=== PATIENT | female | born 1975 | race Caucasian/White ===

== ENCOUNTER 2017-01-13 06:14 | Emergency (ER) | payer OTHER ==
[~2017-01-13] VITALS: Ht 165.1 cm; Wt 150.0 kg
[2017-01-13 06:20] VITALS: BP 146/78; PULSE 92; RESP 20; O2SAT 99
--- NOTE | 2017-01-13 06:34 | ED.REPORT ---
HPI-Abd Pain F Under 42 Date of Service Jan 13, 2017 ED Provider: The patient is a 41 year old female with history of bowel obstructions and known incisional hernia requiring multiple repairs, who presents to the emergency department complaining of lower abdominal pain that began suddenly last night around midnight. She has also experienced nausea and vomiting. Her pain does not radiate. She is still able to pass gas and had a small bowel movement this morning. She denies fever or chills. Her last surgery was about 2- 3 years ago. She normally takes morphine 10 mg BID and 1-3 Vicodin tabs daily for pain. Nursing Notes Stated Complaint: ABDOMINAL PAIN/NAUSEA Chief Complaint: Female Abdominal Pain Nursing Notes Reviewed: Yes ([employer] not reconciled) Allergies: Coded Allergies: clindamycin (Verified Allergy, Intermediate, Hives, 01/13/17) ibuprofen (Verified Allergy, Intermediate, Hives, 01/13/17) Penicillins (Verified Allergy, Mild, Hives, 01/13/17) cephalexin (Verified Allergy, Unknown, 01/13/17) Scheduled Buspirone (Buspirone) 5 Mg Tablet 5 MG PO BID Escitalopram Oxalate (Escitalopram Oxalate) 5 Mg/5 Ml Solution 20 MG PO DAILY Morphine Sulfate ER (MS Contin) 15 Mg Tablet.er 15 MG PO BID Scheduled PRN Cyclobenzaprine (Cyclobenzaprine) 5 Mg Tablet 5 MG PO TID PRN PRN Spasm Hydrocodone-Acetaminophen 5-325 mg (Hydrocodone-Acetaminophen 5-325 mg) 1 Each Tablet 1 TABLET PO Q4H PRN PRN For Pain General Time Seen by MD: 06:33 Chief Complaint Abdominal pain Hx Obtained From: Patient Arrived By: Walk-in Sudden in Onset?: Yes Onset Occurred: 5 - 8 hours ago Symptom Duration: Since onset Progression since Onset: Constant, Gradually worsening Location: : Diffuse Quality: Painful Severity: Current: Moderate Severity: Maximum: Severe Recent Healthcare: No recent doctor visit, No recent hospitalization Similar Sx Previous: Yes Past Medical History Past Medical History Hernia Bowel obstructions Obesity (BMI 55) Past Surgical History Multiple hernia repairs pannulectomy Reports: Family History Noncontributory Smoking History Never Smoker Social History Alcohol Use: Denies alcohol use Other Social History: Good social support, Local resident Ambulatory Status Independent Review of Systems Constitutional: Denies: Chills, Fever GI: Reports: Abdominal pain, Nausea, Vomiting Complete sys rev & neg: except as marked. Physical Exam Initial Vital Signs Vital Signs (First) Date Time Temp Pulse Resp B/P Pulse Ox O2 Delivery O2 Flow Rate FiO2 01/13/17 06:20 36.5 92 20 146/78 99 Room Air 01/13/17 13:24 3 Initial VS: Reviewed, Vital signs normal Head / Eyes: Atraumatic, Normocephalic, PERRL ENT: Mucous membranes moist, Conjunctiva normal, No scleral icterus Neck: Supple, Non-tender, Full range of motion Lymphatic: No lymphadenopathy Extremities: Vascular intact, Neuro intact, No swelling, No tenderness Neurologic: Alert, Oriented, Nonfocal Psychiatric: Mood/affect normal, Behavior normal, Normal thought content General/Constitutional: Awake Appearance / Presentation: Positive: Obese, morbidly She is sitting upright, diaphoretic, and in pain and discomfort. Respiratory / Chest: Atraumatic, Breath sounds NL, Breath sounds = bilat, No respiratory distress, No rales, No rhonchi, No wheezing Cardiovascular: Heart rate NL, Regular rhythm, Heart sounds NL, No gallop, No murmurs, No rubs, Peripheral circulation NL ABDOMEN: There is an area of firmness along the entire lower abdomen. I cannot tell if there is a hernia there, it is difficulty to tell. The firm area is kind of in the LLQ, not inguinal and is above the region where a would be. It is not tender as most hernias are and I can't tell if that firmness is new and related to the pain and represent an incarcerated hernia or not. Back: Inspection NL, Non-tender, No CVA tenderness Skin: Color NL Color / Condition: Positive: Diaphoresis present Interpretation & Diagnostics Interpretation & Diagnostics: Urine : negative Urine dip: positive for proteins and ketones Lab Results Interpretation Result Diagram: 01/13/17 0630 01/13/17 0630 Test 01/13/17 06:30 01/13/17 09:15 White Blood Count 13.9th/mm3 (3.8-10.1) Red Blood Count 5.08mil/mm3 (3.90-5.20) Hemoglobin 13.1g/dL (12.0-15.6) Hematocrit 41.4% (35.0-46.0) Mean Corpuscular Volume 81.5fL (81-100) Mean Corpuscular Hemoglobin 25.8pg (27.0-35.0) Mean Corpuscular Hemoglobin Concent 31.6% (32.0-37.0) Red Cell Distribution Width 15.6% (12.3-15.4) Platelet Count 331bil/L (150-400) Neutrophils (%) (Auto) 77.8% (40-74) Lymphocytes (%) (Auto) 14.9% (14-46) Monocytes (%) (Auto) 4.6% (4-12) Eosinophils (%) (Auto) 0.9% (0-5) Basophils (%) (Auto) 0.4% (0-3) Sodium Level 135mEq/L (134-144) Potassium Level 4.5mEq/L (3.5-5.2) Chloride Level 97mEq/L (97-108) Carbon Dioxide Level 19mmol/L (18-29) Blood Urea Nitrogen 19mg/dL (6-20) Creatinine 0.61mg/dL (0.57-1.00) Estimat Glomerular Filtration Rate 156mL/min (>59) Glucose Level 210mg/dL (60-99) Lactic Acid Level 1.3mmol/L (0.4-2.0) Calcium Level 9.0mg/dL (8.5-10.1) Magnesium Level 2.0mg/dL (1.6-2.6) Total Bilirubin 0.7mg/dL (0.0-1.2) Aspartate Amino Transf (AST/SGOT) 25U/L (0-50) Alanine Aminotransferase (ALT/SGPT) 24U/L (0-32) Alkaline Phosphatase 82U/L (25-150) Total Protein 7.8g/dL (6.4-8.4) Albumin 4.2g/dL (3.4-5.0) Lipase 17U/L (13-60) Human Chorionic Gonadotropin, Qual <0.500 (Negative) Urine Color Yellow (YELLOW) Urine Appearance Hazy (CLEAR,HAZY) Urine pH 6.0 (5.0-8.0) Urine Specific [place] 1.015 (1.003-1.035) Urine Protein Negativemg/dL (NEG,TRACE) Urine Glucose (UA) Negativemg/dL (NEGATIVE) Urine Ketones 80mg/dL (NEGATIVE) Urine Occult Blood Negative (NEGATIVE) Urine Nitrite Negative (NEGATIVE) Urine Bilirubin Negative (NEGATIVE) Urine Urobilinogen Normalmg/dL (NORMAL) Urine Leukocyte Esterase Negative (NEGATIVE) Urine RBC 0-2/hpf (0-2) Urine WBC 0-5/hpf (0-5) Urine Epithelial Cells Occasional/hpf (NONE-MOD) Urine Crystals None seen (NONE SEEN) Urine Bacteria Moderate/hpf (NONE-FEW) Urine Hyaline Casts None/lpf (NONE) Urine Granular Casts None seen (NONE SEEN) Urine Waxy Casts None seen (NONE SEEN) Urine Red Blood Cell Casts None seen (NONE SEEN) Urine White Blood Cell Casts None seen (NONE SEEN) Urine Mucus None seen (None Seen) Urine Trichomonas None seen (NONE SEEN) Urine Yeast None (NONE SEEN) Urinalysis Comment None Urine Culture Reflexed Indicated Lab Results Interpretation: CBC positive leukocytosis CMP positive hyperglycemia Lipase negative negative CT Abd / Pelvis Interpretation IMPRESSION: 1. Moderate small bowel obstruction, with transition point at the new left anterior pelvic wall small bowel containing hernia. 2. New 50 mm diameter bilateral adnexal cysts. Followup ultrasound examination in 6 weeks is recommended to ensure resolution, and to exclude underlying malignancy. 3. Normal appendix. 4. New, pathologically enlarged bilateral inguinal lymph nodes; findings may be reactive. Followup imaging in 2-3 months is recommended to ensure resolution. 5. Hepatic steatosis. Dictated by: Kaykay Durbin M.D. on 01/13/2017 at 8:18 Interpretation / Wet Read by: Interpret - Radiologist Procedures NG Tube Insertion Inserted bupivacaine with epi and Afrin into both nares. Time: 09:53 Procedure Performed by: ED physician Site of Insertion: Nare right # of Attempts: Attempted once on the right side and was unable to easily pass. Attempted on the left side and this was successful. Size of Oral/NG Tube: 16 Fr Placement/Verification/Secured: Inserted w/o difficulty, Placement by gastric asp, Secured with tape, Verified by auscultation Post-Procedure / Complications: Suction: continuous low, No complications, Tolerated procedure well, Patient stable Re-Eval/Medical Decision Med Decision/Clinical Course This is a 41-year-old morbidly obese female BMI of 55 presents to the emergency department complaining of abdominal pain nausea vomiting that started last evening. Multiple lower abdominal hernias-the exact type of hernias a bit unclear to me. She has had to have a mesh surgery, then had complications of infection, and this had recurrent problems with hernia, and then had a pannulectomy. These procedures have been done Tuesday of hospitals-, [facility], and most recently [facility] for the pannulectomy. The patient arrives diaphoretic, in pain, and is obese which complicates her abdominal exam. There is a fullness as if there may be a mass or even potentially incarcerated hernia in the left lower quadrant-but is not as tender as I would expect for someone with an incarcerated hernia. However the patient' s symptoms are concerning. Workup was pursued. Blood was notable for leukocytosis, CT scan is positive for a hernia with bowel obstruction. At this point surgery was consulted, came and saw the patient-the surgeon and anesthesia both evaluated the patient but they have determined the patient's BMI is too elevated for safe management here at [facility], and recommended transfer. I placed an nasogastric tube for decompression. The patient requests to go to [facility] to previous surgeon Dr. Schuler, so the contract admin provider Dr. Su is being contacted to discuss the case. Source of Hx: Old records Re-Evaluation/Progress #1: Time of Eval: 09:30 Re-Evaluation/Progress Note: Rechecked the patient. Discussed results, diagnosis, and plan for admission. All questions were addressed. Re-Evaluation/Progress #2: Time of Eval: 09:38 Re-Evaluation/Progress Note: Surgeon is at bedside examining the patient. Re-Evaluation/Progress #3: Time of Eval: 09:49 Re-Evaluation/Progress Note: Discussed plan for NG tube. Re-Evaluation/Progress #4: Time of Eval: 10:00 Re-Evaluation/Progress Note: Discussed need for transfer. The patient is requesting transfer to [place]. Re-Evaluation/Progress #5: Time of Eval: 11:06 Re-Evaluation/Progress Note: Rechecked the patient. Discussed plan to transfer to [place]. She understands and agrees with plan. Re-Evaluation/Progress #6: Time of Eval: 13:48 Re-Evaluation/Progress Note: Rechecked the patient. Discussed plan for transfer to . Re-Evaluation/Progress #7: Time of Eval: 16:02 Re-Evaluation/Progress Note: Resting. does not appear in discomfort. Aware we are awaiting bed at [facility] Consultation #1: Referral / Consult Name: Rhys Esparza MD Consulted With: Surgeon Call Returned at: 09:24 Fruit Rancher: Will see patient, Agrees with eval, Agrees with plan Note: He would like the patient to be transferred to a different hospital for surgery due to her BMI. Consultation #2: Consulted With: Surgeon Call Returned at: 11:05 Note: Spoke with Dr. Su, the on-call surgeon from [facility] per the patient's request. They are unable to manage the patient's care and recommend transferring south. Consultation #3: Requested Call at: 11:10 Call Returned at: 11:54 Note: Paged surgeon at [place]. Called back at 1154. There are no beds. Consultation #4: Call Returned at: 12:22 Note: Spoke to the transfer center. They are boarding 40 people and are unsure if they will be able to take her. They will call back. Consultation #5: Referral / Consult Name: Rhys Esparza MD Consulted With: Surgeon Call Returned at: 12:26 Note: Spoke with Dr. Esparza. He recommends administering antibiotics while we wait for the transfer center. Consultation #6: Call Returned at: 13:42 Note: Spoke with Dr. Hubbard from about the patient's case. They will acept the patient for transfer. Will call back with a bed assignment. Consultation #7: Call Returned at: 15:55 Note: Awaiting bed at [facility] Discussed /transfer center, they are working on bed but are hopeful at placement and continue to recommend waiting for bed availability Differential Diagnosis: Positive: Acute abdominal pain, Bowel obstruction, Hernia, Negative: Ectopic preg ruptured, Ectopic , Esophageal rupture, Gun shot wound abdomen, Myocardial infarction, Stab wound abdomen Counseled Regarding: Diagnosis, Lab results, Need for transfer Discharge & Departure Primary Impression: Small bowel obstruction Additional Impressions: Hernia Morbid obesity with BMI of 50.0-59.9, adult Disposition: Transfer, Acute Care Facility Receiving Hospital: Transfer Accepted: Yes Transfer Accepted at: 13:43 Transfer Reason: Higher level of care Spoke with: Attending physician (Dr. Hubbard) Patient Status: Stable, Stable for transfer Patient Informed: Yes Discharge Condition All VS Reviewed: Yes Condition: Stable Referrals: Ed Kerr MD (PCP) Tacos Attestation Portions of this note were transcribed by Kathleen Gifford. I, Dr. Vegas personally performed the history, physical exam and medical decision-making; I reviewed and confirmed the accuracy of the information in the transcribed note. Signed by: Tacos Johnson, 01/13/2017 at 1500. copies to: Ed Kerr MD, Matthew F MD Jan 13, 2017 06:34 Kathleen Gifford Jan 13, 2017 06:41
[2017-01-13] MEDS ORDERED: 0.9% Sodium Chloride 1,000 ML IV ONE ×2 (06:41→12:30)
[2017-01-13] MEDS ORDERED: Promethazine Inj 25 MG in Dextrose 5%-Pha MIX 50 ML IV ONE (06:45)
[2017-01-13] MEDS ORDERED: Ondansetron 2 mg/mL 2 mL Inj IVPUSH ONE ×3 (06:45→16:10)
[2017-01-13 07:00] LABS: BASOPHILS % (AUTO) 0.4 % (0-3); EOSINOPHILS % (AUTO) 0.9 % (0-5); MONOCYTES % (AUTO) 4.6 % (4-12); Mean Corpuscular Hemoglobin 25.8 pg (27.0-35.0); Mean Corpuscular Volume 81.5 fL (81-100); NEUTROPHILS % (AUTO) 77.8 % (40-74); Platelet Count 331 bil/L (150-400)
[2017-01-13 07:37] LABS: Lipase 17 U/L (13-60)
--- NOTE | 2017-01-13 08:31 | DRSVH ---
PROCEDURE: CT ABDOMEN AND PELVIS WITH CONTRAST ([id number]) INDICATIONS: Abd paoin TECHNIQUE: After the administration of intravenous contrast, 5 mm thick sections acquired from the diaphragm to the symphysis. 5 mm coronal and sagittal reformats were acquired. For radiation dose reduction, the following was used: automated exposure control, adjustment of mA and/or kV according to patient siz e. COMPARISON: [facility], [place], PELVIC COMPLETE, 10/20/2016, 7:24. [facility], CT, ABDOMEN/PE LVIS WITHOUT CONTRAST, 09/08/2011, 13:48. [facility] , CT, ABD/PELVIS W/O CON (PNL), 11/12/2010, 11:30. [facility] , CT, ABD/PELVIS W/CON (PNL), 04/22/2009, 11:23. FINDINGS: Image quality: Excellent. ABDOMEN: Lung bases: Lung bases are clear. Heart size is normal. Solid organs: Liver is enlarged, measuring 25.6 cm craniocaudal, and demonstrates diffusely decrease d density, indicating fatty infiltration. Spleen is within normal limits. Gallbladder is within braydon l limits. Biliary system is non dilated. Pancreas enhances normally. No adrenal nodules. Kidneys demonstrate normal size and enhancement, without hydronephrosis. Peritoneum and bowel: The stomach is decompressed. Duodenum and proximal jejunum are normal in calibe r. There are several moderately distended mid small bowel loops within the left hemipelvis and left h emiabdomen, with a transition point between dilated and nondilated small bowel at the site of the lef t anterior pelvic wall hernia. The appendix is normal. The colon is decompressed. No free fluid or ai r. Nodes and vessels: No retroperitoneal or mesenteric adenopathy by size criteria. Aorta and inferior vena cava are normal in size. Miscellaneous: There is a small bowel containing left anterolateral pelvic wall hernia measuring 62 m m, which represents the site of small bowel obstruction. PELVIS: Genitourinary: Bladder wall thickness is normal. An intrauterine device is present. Bilateral ovari an cysts are present, measuring 50 mm bilaterally, new since the prior examination. Miscellaneous: No inguinal hernias. There is new, 15 mm short axis right, and 16 mm short axis left inguinal adenopathy. Subcutaneous scarring within the anterior pelvis is present, compatible with pos tsurgical sequelae. Bones: No suspicious bony lesions. No vertebral body compression fractures. IMPRESSION: 1. Moderate small bowel obstruction, with transition point at the new left anterior pelvic wall small bowel containing hernia. 2. New 50 mm diameter bilateral adnexal cysts. Followup ultrasound examination in 6 weeks is recommen ded to ensure resolution, and to exclude underlying malignancy. 3. Normal appendix. 4. New, pathologically enlarged bilateral inguinal lymph nodes; findings may be reactive. Followup im aging in 2-3 months is recommended to ensure resolution. 5. Hepatic steatosis. Dictated by: Kaykay Durbin M.D. on 01/13/2017 at 8:18 Approved by: Kaykay Durbin M.D. on 01/13/2017 at 8:30
[2017-01-13 09:28] VITALS: BP 134/75; PULSE 89; RESP 14; O2SAT 96
[2017-01-13 10:04] LABS: APPEARANCE,URINE HAZY (CLEAR,HAZY); COLOR,URINE YELLOW (YELLOW); OCCULT BLOOD,URINE NEGATIVE (NEGATIVE); UROBILINOGEN,URINE NORMAL (NORMAL)
--- NOTE | 2017-01-13 10:08 | PCM.HPSURG ---
Subjective Date of Service: Jan 13, 2017 Referring Provider: Admitting Physician: Primary Care Physician: Ed Kerr MD Attending Physician: Chief Complaint Abdominal pain, nausea and vomiting. History of Present Illness 41 y/o morbidly obese female with a history of multiple abdominal hernias, bowel obstruction and skin/ soft tissue infections requiring I&D who presented to the ED complaining of abdominal pain, nausea and vomiting since last night ( around midnight). She endorses multiple abdominal hernias requiring repair including an emergent repair at [place] and mesh placement. She states this is a chronic issue which is secondary to a in 2004 that was infected and took over a year to heal. Additionally she reports I&D of an abscess on her pannus ~two years ago that resulted in a panniculectomy and abdominoplasty. She states that the bulging and firmness in her left lower quadrant has been there for several years but that she has remained asymptomatic until last night. She notes increasing abdominal pain localized to her LLQ and vomiting prompted her to come in. Her pain does not radiate and she reports a small bowel movement this morning and has been passing some gas. She denies fever, chills, erythema or warmth, shortness of breath, chest pain, bloody or dark stool. In the ED, she was afebrile with a temperature of 36.5C and normotensive with a BP of 146/78. Pulse was 92 and SpO2 of 99% on room with RR of 20. Labs were significant for a negative urine test, a mildly elevated white blood cell count of 13.9 and elevated serum glucose of 210 but were otherwise unremarkable. A CT scan of the abdomen and pelvis showed a moderate small bowel obstruction, with transition point at the new left anterior pelvic wall small bowel containing hernia and General Surgery was consulted. Allergy Allergies: Coded Allergies: clindamycin (Verified Allergy, Intermediate, Hives, 01/13/17) ibuprofen (Verified Allergy, Intermediate, Hives, 01/13/17) Penicillins (Verified Allergy, Mild, Hives, 01/13/17) cephalexin (Verified Allergy, Unknown, 01/13/17) Medications Medications: Morphine Sulfate 4 mg Q15M PRN IV PUSH Past Surgical History Operations: Multiple hernia repairs (hiatal, ventral) including an emergent repair due to incarcerated bowel & obstruction w/mesh placement. I&D of [place]-rectal abscess I&D of Abscess of inferior pannus w/wound dehiscence, debridement, closure Panniculectomy and abdominoplasty Social History Occupation: manufacturer agent, [employer] Hx Alcohol Use: Yes (occasionally) Hx Substance Use: No (marijuana) Hx Tobacco Use: No PMH HEENT History History of ENT Problems?: No Cardiovascular History History of Heart Problems?: No Cardiovascular History: Denies:: Congestive Heart Failure Hypertension Respiratory History of Respiratory Problem: No Respiratory History: Denies:: Tuberculosis Neurological History Hx Neurologic Problems?: No Gastrointestinal History HX of GI Problems?: Yes (Ventral hernia w/multiple repairs, previous SBO. ) Genitourinary History Hx of Gu Problems?: No Female/Male History Reproductive History Female: Denies: Currently ? Musculoskeletal History Hx Musculoskeletal Problems?: No Psycho Social History Psycho Social History: Positive for:: Anxiety Hx Depression Other History Hx Any Other Health Problems?: No (patient denies ) Diabetes: No Social History Hx Alcohol Use: Yes (occasionally)Hx Substance Use: No (marijuana) Smoking Status: Never Smoker Living Arrangement: with Family (Patient lives locally with her Aunt. She has one son and one step son. ) Family History Family History: Non-contributory. Review of Systems Constitutional: Denies: Chills, Fever Cardiovascular: Denies: Chest Pain Respiratory: Denies: Shortness of Breath Gastrointestinal: Reports: Abdominal Pain, Nausea, Vomiting Genitourinary: Denies: Change in Frequency Skin: Reports: Scars, Denies: Ulcers Neurological: Denies: Numbness, Weakness Psychologic: Denies: Disorientation H&P Surgical Exam Exam General: Alert, Oriented X3 (somewhat lethargic, recent IV push of morphine) Abdomen: Soft, Appropriately tender (firm, palpable mass in LLQ; c/w incarcerated ventral hernia) Neuro: Grossly Neurologically Intact Lab & Micro Results: Laboratory Tests Test 01/13/17 06:30 01/13/17 09:15 White Blood Count 13.9th/mm3 (3.8-10.1) Red Blood Count 5.08mil/mm3 (3.90-5.20) Hemoglobin 13.1g/dL (12.0-15.6) Hematocrit 41.4% (35.0-46.0) Mean Corpuscular Volume 81.5fL (81-100) Mean Corpuscular Hemoglobin 25.8pg (27.0-35.0) Mean Corpuscular Hemoglobin Concent 31.6% (32.0-37.0) Red Cell Distribution Width 15.6% (12.3-15.4) Platelet Count 331bil/L (150-400) Neutrophils (%) (Auto) 77.8% (40-74) Lymphocytes (%) (Auto) 14.9% (14-46) Monocytes (%) (Auto) 4.6% (4-12) Eosinophils (%) (Auto) 0.9% (0-5) Basophils (%) (Auto) 0.4% (0-3) Sodium Level 135mEq/L (134-144) Potassium Level 4.5mEq/L (3.5-5.2) Chloride Level 97mEq/L (97-108) Carbon Dioxide Level 19mmol/L (18-29) Blood Urea Nitrogen 19mg/dL (6-20) Creatinine 0.61mg/dL (0.57-1.00) Estimat Glomerular Filtration Rate 156mL/min (>59) Glucose Level 210mg/dL (60-99) Lactic Acid Level 1.3mmol/L (0.4-2.0) Calcium Level 9.0mg/dL (8.5-10.1) Magnesium Level 2.0mg/dL (1.6-2.6) Total Bilirubin 0.7mg/dL (0.0-1.2) Aspartate Amino Transf (AST/SGOT) 25U/L (0-50) Alanine Aminotransferase (ALT/SGPT) 24U/L (0-32) Alkaline Phosphatase 82U/L (25-150) Total Protein 7.8g/dL (6.4-8.4) Albumin 4.2g/dL (3.4-5.0) Lipase 17U/L (13-60) Human Chorionic Gonadotropin, Qual <0.500 (Negative) Urine Color Yellow (YELLOW) Urine Appearance Hazy (CLEAR,HAZY) Urine pH 6.0 (5.0-8.0) Urine Specific [place] 1.015 (1.003-1.035) Urine Protein Negativemg/dL (NEG,TRACE) Urine Glucose (UA) Negativemg/dL (NEGATIVE) Urine Ketones 80mg/dL (NEGATIVE) Urine Occult Blood Negative (NEGATIVE) Urine Nitrite Negative (NEGATIVE) Urine Bilirubin Negative (NEGATIVE) Urine Urobilinogen Normalmg/dL (NORMAL) Urine Leukocyte Esterase Negative (NEGATIVE) Diagnostics: CT Abdomen/Pelvis IMPRESSION: 1. Moderate small bowel obstruction, with transition point at the new left anterior pelvic wall small bowel containing hernia. 2. New 50 mm diameter bilateral adnexal cysts. Followup ultrasound examination in 6 weeks is recommended to ensure resolution, and to exclude underlying malignancy. 3. Normal appendix. 4. New, pathologically enlarged bilateral inguinal lymph nodes; findings may be reactive. Followup imaging in 2-3 months is recommended to ensure resolution. 5. Hepatic steatosis. Dictated by: Kaykay Durbin M.D. on 01/13/2017 at 8:18 Assessment & Plan Assessment 41 y/o morbidly obese female with a history of multiple abdominal hernias, bowel obstruction and skin/ soft tissue infections requiring I&D who presented to the ED complaining of abdominal pain, nausea and vomiting since last night. Found to have a SBO secondary to an incarcerated ventral hernia and General Surgery consulted for possible hernia repair. Pain Evaluation: Adequate Pain Control Plan: -Patient discussed with the ED Physician as well as Anesthesiology who agree that due to her morbid obesity and complex history of hernia repairs and infections she will likely need to be transferred to a facility that can provide a higher level of care. -NG tube placed, keep NPO -IV morphine as needed for pain. -Surgery will remain available for further consultation as needed or to facilitate patient transfer. -No surgical intervention at this time, due to patient's high risk. Await further evaluation or intervention pending patient transfer. Resuscitation Status: CPR: Attempt Resuscitation Attending Statement: I personally interviewed and examined the pt, and I discussed the case with anesthesiologist on-call. I agree with Dr. Camejo's assessment and plan. Amber Camejo DO Jan 13, 2017 10:08 Rhys Esparza MD Jan 16, 2017 17:39
[2017-01-13 11:51] VITALS: BP 140/77; PULSE 98; RESP 16; O2SAT 97
[2017-01-13] MEDS ORDERED: Meropenem Inj 1,000 MG in IV Premix 1 EACH IV ONE (12:30)
[2017-01-13] MEDS ORDERED: Meropenem 1 Gm/100 mL NS Minibag Plus IV ONE ×2 (12:50)
[2017-01-13 13:24] VITALS: BP 144/64; PULSE 92; RESP 16; O2SAT 95
[2017-01-13 15:03] VITALS: BP 126/62; PULSE 93; RESP 12; O2SAT 98
[2017-01-13] MEDS ORDERED: BUSP5TAB3 PO (15:13)
[2017-01-13] MEDS ORDERED: ESCI5SOL4 PO (15:13)
[2017-01-13] MEDS ORDERED: CYCL5TAB PO (15:13)
[2017-01-13] MEDS ORDERED: MS15TCR PO (15:13)
[2017-01-13] MEDS ORDERED: HYDR-4003 PO (15:13)
[2017-01-13 17:04] VITALS: BP 143/66; RESP 15; O2SAT 95
== END 2017-01-13 18:10 | disposition short-term general hospital (02) ==
LOC: SED 06:14
DX: K56.69 Other intestinal obstruction (principal); K46.9 Unspecified abdominal hernia without obstruction or gangrene; E66.01 Morbid (severe) obesity due to excess calories; Z68.43 Body mass index [BMI] 50.0-59.9, adult; Z88.0 Allergy status to penicillin; Z88.1 Allergy status to other antibiotic agents; Z88.8 Allergy status to other drugs, medicaments and biological substances
CPT/HCPCS: 36415; 43753; 74177; 80053; 81000; 81025; 83605; 83690; 83735; 84703; 85025; 87086; 87088; 96361; 96365; 96375; 96376; 99285; J2185; J2250; J2270; J2405; J2550; J7030; Q9967